=== PATIENT | female | born 1980 | race Caucasian/White ===

== ENCOUNTER 2018-04-05 23:19 | Inpatient (IN) | payer BC, MEDICAID ==
[2018-04-06] MEDS ORDERED: LABETALOL HCL 5 MG/ML 20 ML MDV IVP PRN (02:32)
[2018-04-06] MEDS ORDERED: D50W 25 GM/50 ML SYR IVP PRN (03:18)
[2018-04-06] MEDS: NS 1,000 ML IV SCH (03:32)
[2018-04-06] MEDS: ACETAMINOPHEN 325 MG TAB PO PRN ×2 (03:33→16:45)
[2018-04-06 05:04] LABS: PLATELET COUNT 221 10^3/uL (150-400)
--- NOTE | 2018-04-06 05:04 | PDGENHP ---
History and Physical - Chief Complaint headache, left lateral vision loss - History of Present Illness Source - Patient provides history and appears reliable. at bedside and supplements some details. Accompanying paper chart from [facility]. I spoke with the care provider prior to patient's transfer. They have requested transfer to [facility]. HPI-this very pleasant 38-year-old female with past medical history significant for DM 2, morbid obesity BMI of 41, HTN not currently on any medications as they were discontinued a few months ago by PCP, migraine headache, history of idiopathic cardiomyopathy who presents emergency department today her following the new onset of worsening diffuse headache and loss of left lateral vision. Patient reports that she [place] in the mall with [place] when she started to feel unwell. Patient notes that she was having increasing headache and subsequently developed loss of left lateral vision. Patient reports that he took a little time to recognize this specific nature of her vision loss as she sometimes gets blurry vision with low blood sugar which she thought was what was happening. She and her on stop for fluid in the courtyard however patient began to notice that she could not see her son who is sitting to her left. Her headache continued to worsen and so she presented to the emergency department for additional evaluation. Patient reports that 1 year ago she was diagnosed with hypertension and she had a similar symptom with her headache but no acute changes in vision at that time. Her blood pressures remained very well controlled and sulfa PCP took her off her enalapril. She follows with her PCP every 3 months and has not noticed any issues her blood pressures. She denies currently any numbness or tingling or focal deficits of her extremities otherwise. Patient does note that over the last several months she has been having quite variable blood sugars and has been making dietary adjustments. Additionally patient has had addition of injectable medication for control of her diabetes. Patient also notes that she has been having some upper respiratory symptoms like a common cold she has been taking Mucinex and NyQuil. Denies any use of Sudafed. Denies fever or chills In the emergency department at [facility]-patient underwent CT head, CTA of the head and neck which were negative. Stat MRI was obtained that did show a right ORTHOPEDIC CAST SPECIALIST infarct. Patient received full-dose aspirin has been greater than 3 hr and her blood pressures remained elevated. She was given a 2.5 mg dose of amlodipine for mildly elevated diastolic blood pressure above goal. Neurology at [facility] was consulted and initially patient was to be transferred over there however patient and her family requested transfer to [facility] for further care. History Information - Allergies/Home Medication List Allergies/Adverse Reactions: No Known Allergies Allergy (Unverified 04/06/18 02:24) I have personally reviewed and updated: family history, medical history, social history, surgical history - Past Medical History diabetes type 2, hypertension Additional medical history: Dm 2, HTN, migraine headaches, morbid obesity with BMI greater than 40, idiopathic cardiomyopathy - Surgical History Additional surgical history: BTL - Family History Additional family history: Father-diabetes HTN. Paternal grandfather, grandmother aunt and uncle all with DM 2. - Social History Smoking Status: Former smoker Alcohol Use: None Drug Use: None Additional social history: Patient is and lives with her and children. Cor status-full. Review of Systems Review of Systems: ROS: 10pt was reviewed & negative except for what was stated in HPI & below Physical Exam Physical Exam: Selected Entries 04/06/18 01:39 Heart Rate 111 H Respiratory 20 Rate O2 Sat (%) 93 Temperature (C) 37.6 C Blood Pressure 168/119 H Mean Arterial 135 H Pressure (MAP) Activity During At Rest Vital Signs O2 Delivery Room Air Mode Blood Pressure Right Source Upper Arm Temperature Oral Source Heart Rate Automatic Source Temp Pulse Resp BP Pulse Ox 36.5 C 106 H 16 184/128 H 94 04/06/18 03:35 04/06/18 03:35 04/06/18 03:35 04/06/18 03:35 04/06/18 03:35 Constitutional: no apparent distress, appears nourished, obese, uncomfortable, other (NAD. Pleasant adult female is lying quietly in bed. She is awake her is at bedside.) Eyes: PERRL (Decreased reactivity to light bilaterally but symmetric.), anicteric sclera, EOMI, No scleral injection Ears, Nose, Mouth, Throat: moist mucous membranes, other (Nasal discharge), No poor dentition Cardiovascular: regular rate and rhythym, no murmur, rub, or gallop, irregularly irregular, pulses symmetric bilaterally, tachycardia, No edema Peripheral Pulses: 2+: dorsalis-pedis (R), dorsalis-pedis (L) Respiratory: no respiratory distress, no rales or rhonchi, clear to auscultation , No respiratory distress Gastrointestinal: normoactive bowel sounds, soft, non-tender abdomen, no palpable masses Genitourinary: no bladder tenderness, No stevenson in urethra Skin: warm, normal color, no rashes or abrasions, No rash Musculoskeletal: full muscle strength, no muscle tenderness, normal joint ROM, no joint effusions, No generalized weakness (Patient is able to sit up independently. She is able to move all extremities.) Neurologic: AAOx3, sensation intact bilaterally, other (Left lateral visual field loss but no abnormalities and gaze. Patient with some intention tremor with cerebellar testing. Rapid alternating movements are intact. [id number] intact.), No weakness, No numbness, No facial droop Psychiatric: interacting appropriately, not anxious, not encephalopathic, thought process linear, No suicidal ideation, No poor insight, No poor judgement , No poor memory Lab Data & Imaging Review 04/06/18 04:48 04/06/18 04:48 Imaging Review: Imaging study reports from [facility] were reviewed. Disc accompanies the patient but I cannot access and on current only available computers. CT head-negative for any acute changes. CTA of the head and neck negative left off the octavia artery will visualized. The right ophthalmic artery not well visualized. In suddenly and incompletely visualized pericardial effusion measuring least 1.6 cm in maximal thickness noted. Extensive gas throughout the venous structures of the neck in deep facial soft tissues likely due to venous access. Maxillary sinus mucosal inflammation. MRI right posterior cerebral artery distribution ischemia/infarct. Chest a-pvv-yuqlrsu enlargement with central pulmonary vascular congestion and increased perihilar markings which may reflect mild perihilar edema and CHF. EKG additional interpertation: EKG did not accompany the patient. Written interpretation showing sinus tachycardia, LAD consider biatrial enlargement. Old inferior infarct. Rate in the 1 teens. QTC 448. On telemetry as she is sinus tachy 100s. EKG has been ordered. Assessment & Plan Assessment: This is a pleasant 38-year-old female with past medical history significant for HTN untreated, dm 2, morbid obesity who presents emergency department with complaints of several hours of worsening attic and left lateral visual field deficit. #Acute right ORTHOPEDIC CAST SPECIALIST infarct - likely related to patient's elevated blood pressures. They have improved since arrival. She did receive 2.5 mg of amlodipine prior to transfer. P.r.n. Hydralazine will be available for blood pressures greater than 220/120. Non tPA stroke protocol is in place. Patient with cerebellar testing abnormalities otherwise nonfocal exam. Her current NIH score is 0. Neurology consultation in the morning. Patient receive 325 mg aspirin prior to transfer. PT OT consultation. #Hypertensive emergency - patient reports that she presented similarly with headache a year ago and was treated for hypertension with enalapril. Her blood pressures remain were very well controlled under PCP discontinued her antihypertensive. Patient reports that she has also since that time had follow up with her PCP every 3 months and has not had any issues with her blood pressures up until today. #Pericardial effusion - incidentally noted on CT. Echocardiogram has been ordered. Chest x-ray consistent with findings of pulmonary edema and possible CHF however suspect this is likely due to hypertensive emergency. Patient notes she has a previous history of cardiac abnormalities. Outside records notes that she has a history of idiopathic cardiomyopathy. #Headache - likely related patient's blood pressures as well as infarct. Pain head and blood pressures have a proved following pain medications. #Visual field deficit-in setting of acute ORTHOPEDIC CAST SPECIALIST infarct. Continue to monitor for any improvement. Follow-up with Ophthalmology outpatient basis. CTA did not indicate any occlusion in the retinal artery on the left. #URI - patient with the nasal congestion and cough. She is afebrile. Supportive care. Hold off at additional cough suppressants that could potentially elevated blood pressures were discussed. Chronic medical issues #Dm 2 uncontrolled - holding metformin status post contrast load for 24 hr. Low -dose sliding scale with monitoring of Accu-Cheks. ADA diet. Continue patient' s glipizide. She has also been started on exenatide injection weekly and has started to note some occasional low blood sugars in the 80s to 90s. Patient reports that this is low for her as she has always been high and she can developed symptoms easily. #Morbid obesity BMI 41.7 - patient reports that she has had significant dietary changes and does not eat that much. Encouraged also lifestyle modifications as well including irregular activity. FEN - saline lock IV. Electrolyte monitoring replacement if needed. ADA diet ordered. Patient passed her swallow eval. PPX-holding anticoagulation pending Neurology evaluation recommendations. SCDs. Cor status-full Disposition-patient admitted to inpatient status on the neuro med floor for close monitoring of her neurologic status.
[2018-04-06 05:36] LABS: CREATINE KINASE 35 IU/L (0-156)
--- NOTE | 2018-04-06 07:54 | PDMN ---
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
[2018-04-06] MEDS: ONDANSETRON 4 MG/2 ML VIAL IVP PRN ×3 (07:55→16:37)
[2018-04-06] MEDS: INSULIN LISPRO 100 UNIT/ML SC SCH ×3 (08:46→18:40)
[2018-04-06] MEDS ORDERED: ASPIRIN 81 MG CHEWABLE TAB PO SCH (09:00)
--- NOTE | 2018-04-06 09:34 | NEUROPROG ---
Assessment: [id number] - Neurology Consult: - CC: Dr. Randle consulted neurology for stroke. Results placed in EMR for her review. - HPI: Pt with PMHx of DM2, obesity, HTN, migraines, idiopathic cardiomyopathy noted on 04/05/18 worsening headaches and problems with vision on her left side. She was not on any medications. She presented to [facility] in [place], [place]. A head CT and head/neck CTA were reported to be unremarkable but brain MRI was reported so show a R SCRATCH FINISHER stroke per [facility] admission H&P. No TPA was given. Pt requested transfer to [facility] which was done. Pt was also noted to have a pericardial effusion. I initially saw the patient on 04/06/18. Neurologic exam showed left sided vision. - PMHx: DM2, morbid obesity, HTN, migraines, idiopathic cardiomyopathy PSHx: BTL - SHx: former tobacco use FHx: HTN, DM2 - ROS: Pt denied acute fever, total vision loss, active severe chest pain, respiratory failure, total body severe rash, total bowel/bladder incontinence, psychosis, active seizures, or active bleeding - O: VS reviewed General: Alert Eyes: Fundoscopic exam not able to visualize optic disks CV: Heart RRR, no murmur, no carotid bruit Lungs: Clear to auscultation bilaterally, no rhonchi or rales Neuro: - Mental: . Oriented x person/place/date . concentration appears normal . speech fluency/comprehension normal . memory appears normal . fund of knowledge appear intact - Cranial Nerves: . II: PERRL, VF shows left sided vision loss in both eyes . III/IV/: EOMI, no nystagmus, normal smooth pursuits, no Ptosis . V: facial sensation intact to LT . VII: face symmetric to eye closure and smile . VIII: hearing intact to conversation . IX/X: uvula raises symmetrically . XI: SCM 5/5 B/L strength . XII: tongue protrudes midline w/nl strength - Motor: . Tone: normal tone in all 4 extremity . Strength: no pronator drift, strength 5/5 throughout (B/L delt, bic, tri, hand print inspector, hf/he, df/pf) - Reflexes: B/L bic/BR/patella 2/4 - Sensory: all 4 extremity intact to light touch - Coord: mrqbyi-th-focg wnl, ОЛЬГА wnl, mkoh-qe-efdl wnl - Gait: defer - NIH SS 2 - Labs: 04/06/18- LDL 54L, H1AC pending - Rads: 04/05/18- Head CT: reported not to show any acute bleed 04/05/18- Head/Neck CTA: reported not to show any significant findings 04/05/18- Brain MRI wo: reported to show right SCRATCH FINISHER stroke - Assessment: 1. Right SCRATCH FINISHER Stroke on 04/05/18 causing left sided vision changes: CTA head/neck on 04/05/18 showed no cause. Brain MRI on 04/05/18 showed right SCRATCH FINISHER distribution stroke. LDL 54L, pt not on aspirin prior to stroke. - 2. Pleural Effusion: defer to hospitalist - 3. HTN 4. DM2 5. Morbid Obesity 6. Migraines - Plan: - 24 hour telemetry looking for afib - TTE - Recommend cardiology consult for SISI and placement of prolonged nurse monitoring if TTE/telemetry does not find any cardioembolic cause of stroke - Continue aspirin 325 mg qd (change to aspirin 81 mg qd on hospital discharge) for stroke prevention - Blood pressure < 220/120 x 48 hours then < 140/90 - LDL < 70 (54) - H1AC < 7.0 - PT/OT/Speech to determine rehab needs - F/U in neurology clinic 1-6 weeks after hospital discharge Objective: Vital Signs Temp Pulse Resp BP Pulse Ox 36.5 C 112 H 33 H 168/120 H 94 04/06/18 07:49 04/06/18 07:49 04/06/18 07:49 04/06/18 08:44 04/06/18 07:49 Laboratory Results 04/06/18 04:48 04/06/18 04:48 04/05/18 04/06/18 04/07/18 05:59 05:59 05:59 Intake Total 425 Balance 425 Allergies/Adverse Reactions: No Known Allergies Allergy (Unverified 04/06/18 02:24)
--- NOTE | 2018-04-06 11:04 | ECHO ---
[email or web address] [address] [address] Main: [phone] Fax: Transthoracic Echocardiogram Name: FARZANEH MCGUIRE MR#: [id number] Study Date: 04/06/2018 Study Time: 10:07 AM Date of : 1980 Age: 38 year(s) Height: 157.5 cm (62 in.) Weight: 103.42 kg (228 lb.) BSA: 2.02 m2 Gender: Female Examination: Echo Indication: Ischemic stroke Image Quality: Adequate Contrast: Requested by: Odalis Randle BP: 165 mmHg/118 mmHg Heart Rate: Rhythm: Indication: Ischemic stroke Procedure Staff Olive Grader: Herminia Lemons RDCS Reading Physician: Umberto Devine MD Requesting Provider: Conclusions: Severely reduced systolic LV function. The ejection fraction is visually estimated to be 10 %. An agitated saline study was performed and was negative for intracardiac shunting. Mitral regurgitation may be mild to moderate. Moderate tricuspid regurgitation is present. Right ventricular systolic pressure measures 49mmHg. Small pericardial effusion. Measurements: Chambers Valvular Assessment AV/MV Valvular Assessment TV/PV Normal Normal Normal Name Value Range Name Value Range Name Value Range Ao Jeanette (2D): 3.1 cm (1.4 cm-2.6 AV Vmax: 1.15 m/s (1 m/s-1.7 TR Vmax: 3.33 mm/s ( - ) cm) m/s) TR PGmax: 44 mmHg ( - ) IVSd (2D): 1.2 cm (0.6 cm-1.1 AV maxP mmHg ( - ) syst. PAP: 49 mmHg ( - ) cm) AV meanP mmHg ( - ) PV Vmax: 0.77 m/s (0.6 m/s-0.9 LVDd (2D): 5.2 cm (3.9 cm-5.3 CHRISTA (VTI): 1.8 cm ( - ) m/s) cm) MV E Vmax: 1.07 m/s ( - ) PV PGmax: 2 mmHg ( - ) LVDs (2D): 4.6 cm (2.1 cm-4 MV PHT: 0.037 s ( - ) cm) MVA (PHT): 5.9 s ( - ) LVPWd (2D): 1.2 cm ( - ) LVOTd 2.0 cm 2.0 cm mm Visual EF: 10 % RVDd(2D): 3.8 cm (1.9 cm-3.8 cmmm) Continued Measurements: Chambers Valvular Assessment AV/MV Valvular Assessment TV/PV Name Value Name Value Name Value Patient: FARZANEH MCGUIRE Study Date: 04/06/2018 Page 1 of 2 10:07 AM LADs: 3.9 cm MV DecTime: 116 m/s CVP (est.): 5 mmHg LADs Lon.2 cm LA Area: 23.7 cm2 LA Volume: 71 ml LA Volume Index: 35.1 ml/m2 RA Area: 21.4 cm2 Additional Vessels Name Value Ao Ascendin.4 cm Inferior Vena Cava: 2.5 cm Findings: Left Ventricle: Normal size left ventricle. Mild concentric LV hypertrophy. Severely reduced systolic LV function. The ejection fraction is visually estimated to be 10 %. Global hypokinesis. Right Ventricle: Normal size right ventricle. Normal RV function. Left Atrium: The left atrium is mildly dilated. An agitated saline study was performed and was negative for intracardiac shunting. Right Atrium: The right atrium is mildly dilated. Mitral Valve: The mitral valve is normal in appearance and function. No mitral stenosis is present. Mitral regurgitation may be mild to moderate. Aortic Valve: The aortic valve is tri-leaflet. Mild aortic valve regurgitation is present. No aortic valve stenosis is present. Tricuspid Valve: The tricuspid valve is normal in appearance and function. Moderate tricuspid regurgitation is present. The pulmonary artery pressure is moderately increased. Right ventricular systolic pressure measures 49mmHg. Pulmonic Valve: The pulmonic valve is normal in appearance and function. Mild pulmonic valve regurgitation is noted. Aorta: The aorta is normal. Normal size aortic root measuring 3.1 cm. Normal size ascending aorta measuring 3.4 cm. IVC: The IVC is mildly dilated. Pericardium: Small pericardial effusion. No pleural effusion. Pericardial effusion measures around 1 cm. (No Signature Object) Patient: FARZANEH MCGUIRE Study Date: 04/06/2018 Page 2 of 2 10:07 AM [id number]
[2018-04-06] MEDS: hydrALAZINE 20 MG/ML VIAL IVP PRN (11:06)
[2018-04-06] MEDS ORDERED: PERFLUTREN LIPID MICROSPHERES 1.1 MG/ML VIAL IV ONE (11:15)
[2018-04-06] MEDS ORDERED: PNEUMOCOCCAL 0.5ML VACCINE VIAL (PNEUMOVAX 23) IM ONE (11:49)
--- NOTE | 2018-04-06 12:36 | ASMTCMCOM ---
CM Note CM Note Notes: Chart review conducted and spoke with pt's RN. Pt admitted for CVA, HTN and pericardial effusion. Pt lives with independently. Pt still having high BPs, nausea, vomitting and low EF. Therapies are following, PT anticipating independent discharge. Disposition and D/C date still TBD due to significant debilitating symptoms at this time. CM to follow. D/c Plan: TBD Date Signed: 04/06/2018 12:35 PM Electronically Signed By:Jessy Waldron
--- NOTE | 2018-04-06 13:34 | ECHO ---
[email or web address] [place] [id number] Main: [phone] Fax: Transthoracic Echocardiogram Name: FARZANEH MCGUIRE MR#: [id number] Study Date: 04/06/2018 Study Time: 11:21 AM Date of : 1980 Age: 38 year(s) Height: 157.5 cm (62 in.) Weight: 103.42 kg (228 lb.) BSA: 2.02 m2 Gender: Female Examination: Limited Echo with Definity Indication: Limited follow up with Definity Image Quality: Adequate Contrast: 0.330 mg I.V. dose of Definity was administered to improve endocardial border definition. Requested by: Notpresent Patient BP: 157 mmHg/122 mmHg Heart Rate: Rhythm: Indication: Limited follow up with Definity Procedure Staff Nail Kegger: Herminia Lemons [facility] Reading Physician: Umberto Devine MD Requesting Provider: Conclusions: No evidence of thrombus in the left ventricle. Measurements: Chambers Valvular Assessment AV/MV Valvular Assessment TV/PV Normal Normal Normal Name Value Range Name Value Range Name Value Range Continued Measurements: Findings: Left Ventricle: No evidence of thrombus in the left ventricle. Exam Comments: (No Signature Object) Patient: FARZANEH MCGUIRE Study Date: 04/06/2018 Page 1 of 1 11:21 AM [id number]
[2018-04-06] MEDS ORDERED: hydrALAZINE 25 MG TAB PO ONE (14:45)
[2018-04-06] MEDS ORDERED: ALBUTEROL 60 PUFFS/8 GM MDI IH PRN (15:35)
--- NOTE | 2018-04-06 15:39 | HOSPPROG ---
Hospitalist Progress Note Assessment/Plan: 38 year old female with pmh of NIDDM, morbid obesity, HTN admitted with an acute DIRECTOR OF PATIENT CARE stroke and found to have LVEF of 10%. Acute CVA- MRI from OSH showed acute CVA of right DIRECTOR OF PATIENT CARE. patient with continued NV and left sided visual field deficits. Neurology consulted who saw patient and recommends permissive HTN for 48 hours, full dose asa, lipid control, and SISI. Etiology concerning for embolic CVA given TTE results. 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 Discussed case with cardiology. Etiology uncertain although even though patient with DM and obesity, likely not ischemic CM. may be viral, vs hypertensive. Either way would likely benefit from angiography prior to dc. -SISI in am -cath prior to dc. -check flu for possible etiology -BP control -further discussion about coumadin/anticoagulation pending NIDDM- on metformin at home. A1c 7.8. Hold here and cover with SSI PPX- SCDS, Asa, lovenox Fluids- NS Lytes- WNl Nutrition- NPO at LA Cor- Full Dispo- inpatient for acute CVA, CHF Subjective: still with left sided visual field problems. ongoing nausea. Objective: Vital Signs Temp Pulse Resp BP Pulse Ox 36.9 C 102 H 28 H 172/125 H 94 04/06/18 14:08 04/06/18 15:00 04/06/18 15:00 04/06/18 15:00 04/06/18 15:00 Laboratory Results 04/06/18 04:48 04/06/18 04:48 04/05/18 04/06/18 04/07/18 05:59 05:59 05:59 Intake Total 425 Balance 425 - Physical Exam Constitutional: no apparent distress, appears nourished, not in pain Eyes: PERRL, anicteric sclera, EOMI Ears, Nose, Mouth, Throat: moist mucous membranes, hearing normal, ears appear normal, no oral mucosal ulcers Cardiovascular: regular rate and rhythym, no murmur, rub, or gallop Respiratory: no respiratory distress, no rales or rhonchi, clear to auscultation Gastrointestinal: normoactive bowel sounds, soft, non-tender abdomen, no palpable masses Genitourinary: no bladder fullness, no bladder tenderness, no renal bruits Skin: no rashes or abrasions, no fluctuance, no induration Musculoskeletal: full muscle strength, no muscle tenderness, normal joint ROM Neurologic: AAOx3, sensation intact bilaterally, other (left sided visual field deficits noted. ) Psychiatric: interacting appropriately, not anxious, not encephalopathic, thought process linear, suicidal ideation Lymph, Heme, Immunologic: no cervical LAD, no supraclavicular LAD ICD10 Worksheet Patient Problems: Problems Problem Status Onset CVA (cerebral vascular accident) Acute - ICD10 Problem Qualifiers (1) CVA (cerebral vascular accident)
--- NOTE | 2018-04-06 15:52 | CPEKG ---
Test Reason : OPEN Blood Pressure : / mmHG Vent. Rate : 105 BPM Atrial Rate : 105 BPM P-R Int : 163 ms QRS Dur : 084 ms QT Int : 382 ms P-R-T Axes : 069 -23 020 degrees QTc Int : 506 ms Sinus tachycardia Left atrial enlargement Borderline left axis deviation Borderline T wave abnormalities Borderline prolonged QT interval Confirmed by Floyd Delcid ([id number]) on 04/06/2018 3:51:44 PM Referred By: Confirmed By:Floyd Delcid
--- NOTE | 2018-04-06 16:03 | PDCARCONS ---
Cardiology Consult Reason for Consult: New, severe reduction in LVEF noted by echocardiography Chief Complaint: Head ache with new CVA and HTN Requesting Physician: Hospitalist team History of Present Illness: Patient is a 38 y/o female with history of DM, morbid obesity (BMI ?40), and HTN (not on therapy on therapy) with reports of "non ischaemic" cardiomyopathy ( by reason of mild reduction in left ventricular systolic function by echocardiography in [place] several months ago (47%)), who presents to [facility] after transfer from [facility] given a lack of neurology coverage. Patient was initially placed on the third floor, and seen by neurology, but after completion and formal read on echocardiography, cardiology with recommendations for patient to be placed in the ICU for more close monitoring. Patient's complaint that led to initial hospitalization were severe head ache, and visual field changes. From chart review, one year prior, similar issues with blood pressure were noted and the patient was treated with antihypertensive therapy ( enalapril). Blood pressures were reportedly well controlled with numerous follow up visits with PCP. CT of head was performed at [place], and no pathology was noted. MRI was then performed, and a right CRESTER infarct was noted. Amlodipine was started for assistance with blood pressure control, and the patient was given ASA therapy. At present, the patient's chief complaint has been nausea and ongoing head ache. Morphine was given, and it is uncertain if some of the symptoms currently noted are due to this therapy versus ongoing HTN. Neurology is wanting to have some degree of blood pressure control, but given the CVA, request for less than aggressive HTN control is desired (140-160 mm Hg systolic) . Patient did start a recent weight loss medication, and this has been successful with change in appetite to the point that she has lost over 30 pounds. Patient did not have follow up with cardiology after the noted mild reduction in systolic function given improvement in blood pressures that were noted. Echocardiogram here today with left ventricular systolic function of 10%. No fevers or chills. PND is noted with mild orthopnea. No lower extremity swelling has been noted. Visual field changes have also been noted (for the past 24 hours). No chest pains or pressure. Remainder of 12 point review of systems is unremarkable History Information - Allergies/Home Medication List Allergies/Adverse Reactions: No Known Allergies Allergy (Verified 04/06/18 09:50) Home Medications: Albuterol Hfa Anes Only [Proair Hfa Icu (*)] 2 puffs IH QID PRN 04/06/18 [Last Taken Unknown] Exenatide Microspheres [Bydureon Pen] 2 mg SQ WE@21 04/06/18 [Last Taken ] Ibuprofen [Motrin (*)] 200 - 600 mg PO DAILY PRN 04/06/18 [Last Taken Unknown] Norethindrone [Norlyda] 0.35 mg PO HS 04/06/18 [Last Taken 04/04/18] glipiZIDE [Glipizide] 5 mg PO BID 04/06/18 [Last Taken 04/05/18] metFORMIN HCL [Metformin HCl] 1,000 mg PO BID 04/06/18 [Last Taken 04/05/18] I have personally reviewed and updated: family history, medical history, social history, surgical history Past Medical History: - Past Medical History asthma, CVA, diabetes type 2, hypertension - Surgical History Reports: no pertinent surgical hx - Family History Positive for: non-pertinent - Social History Smoking Status: Former smoker Alcohol Use: None Drug Use: None Cardiac History - Cardiac History Cardiac Risk Factors: hypertension (>140/90), diabetes mellitus Timing/Duration: Days Severity: moderate Severity Scale: 7 Location: other (visual field disturbances) Activities at Onset: activity Associated Symptoms: headaches, malaise, nausea/vomiting, weakness Physical Exam Physical Exam: Temp Pulse Resp BP Pulse Ox 36.9 C 102 H 28 H 172/125 H 94 04/06/18 14:08 04/06/18 15:00 04/06/18 15:00 04/06/18 15:00 04/06/18 15:00 O2 (L/minute) 2 Constitutional: no apparent distress, appears nourished, obese, uncomfortable Eyes: PERRL, EOMI Ears, Nose, Mouth, Throat: moist mucous membranes, hearing normal, ears appear normal Cardiovascular: regular rate and rhythym, pulses symmetric bilaterally, tachycardia, No systolic murmur, No JVD, No edema Peripheral Pulses: 2+: dorsalis-pedis (R), dorsalis-pedis (L) Respiratory: no respiratory distress, no rales or rhonchi, clear to auscultation Gastrointestinal: normoactive bowel sounds Skin: warm, normal color Musculoskeletal: full muscle strength, no muscle tenderness, normal joint ROM Neurologic: AAOx3, weakness Psychiatric: interacting appropriately Lab and Imaging 04/06/18 04:48 04/06/18 04:48 WBC 8.84 10^3/uL (3.80-9.50) 04/06/18 04:48 RBC 4.60 10^6/uL (4.18-5.33) 04/06/18 04:48 Hgb 11.9 g/dL (12.6-16.3) L 04/06/18 04:48 Hct 36.4 % (38.0-47.0) L 04/06/18 04:48 MCV 79.1 fL (81.5-99.8) L 04/06/18 04:48 MCH 25.9 pg (27.9-34.1) L 04/06/18 04:48 MCHC 32.7 g/dL (32.4-36.7) 04/06/18 04:48 RDW 14.0 % (11.5-15.2) 04/06/18 04:48 Plt Count 221 10^3/uL (150-400) 04/06/18 04:48 MPV 10.9 fL (8.7-11.7) 04/06/18 04:48 Neut % (Auto) 79.5 % (39.3-74.2) H 04/06/18 04:48 Lymph % (Auto) 14.7 % (15.0-45.0) L 04/06/18 04:48 [place] % (Auto) 5.0 % (4.5-13.0) 04/06/18 04:48 Eos % (Auto) 0.3 % (0.6-7.6) L 04/06/18 04:48 Baso % (Auto) 0.3 % (0.3-1.7) 04/06/18 04:48 Nucleat RBC Rel Count 0.0 % (0.0-0.2) 04/06/18 04:48 Absolute Neuts (auto) 7.02 10^3/uL (1.70-6.50) H 04/06/18 04:48 Absolute Lymphs (auto) 1.30 10^3/uL (1.00-3.00) 04/06/18 04:48 Absolute Monos (auto) 0.44 10^3/uL (0.30-0.80) 04/06/18 04:48 Absolute Eos (auto) 0.03 10^3/uL (0.03-0.40) 04/06/18 04:48 Absolute Basos (auto) 0.03 10^3/uL (0.02-0.10) 04/06/18 04:48 Absolute Nucleated RBC 0.00 10^3/uL (0-0.01) 04/06/18 04:48 Immature Gran % 0.2 % (0.0-1.1) 04/06/18 04:48 Immature Gran # 0.02 10^3/uL (0.00-0.10) 04/06/18 04:48 Sodium 135 mEq/L (135-145) 04/06/18 04:48 Potassium 3.5 mEq/L (3.5-5.2) 04/06/18 04:48 Chloride 105 mEq/L (97-110) 04/06/18 04:48 Carbon Dioxide 22 mEq/l (22-31) 04/06/18 04:48 Anion Gap 8 mEq/L (6-14) 04/06/18 04:48 BUN 11 mg/dL (7-23) 04/06/18 04:48 Creatinine 0.7 mg/dL (0.6-1.0) 04/06/18 04:48 Estimated GFR > 60 04/06/18 04:48 Glucose 222 mg/dL (70-100) H 04/06/18 04:48 POC Glucose 245 mg/dL (70-100) H 04/06/18 11:44 Hemoglobin A1c 7.8 % (4.0-6.0) H 04/06/18 04:48 Estim Average Glucose 177 mg/dL (68-126) H 04/06/18 04:48 Calcium 8.3 mg/dL (8.5-10.4) L 04/06/18 04:48 Creatine Kinase 35 IU/L (0-156) 04/06/18 04:48 Triglycerides 118 mg/dL (35-135) 04/06/18 04:48 Cholesterol 112 mg/dL (140-200) L 04/06/18 04:48 Cholesterol Risk Factr 0.5 (0.2-1.0) 04/06/18 04:48 LDL Cholesterol, Calc 54 mg/dL (70-100) L 04/06/18 04:48 LDL Risk Factor 0.6 (0.2-1.0) 04/06/18 04:48 VLDL Cholesterol 24 mg/dL (8-25) 04/06/18 04:48 Non-HDL Cholesterol 78 mg/dL (90-129) L 04/06/18 04:48 HDL Cholesterol 34 mg/dL (40-80) L 04/06/18 04:48 LDL/HDL Ratio 1.60 RATIO (1.00-3.22) 04/06/18 04:48 Cholesterol/HDL Ratio 3.29 RATIO (1.00-4.44) 04/06/18 04:48 Nasal Influenza A PCR NEGATIVE FOR FLU A (NEGATIVE) 04/06/18 14:58 Nasal Influenza B PCR NEGATIVE FOR FLU B (NEGATIVE) 04/06/18 14:58 Visualized and Interpreted Chest x-ray results: No Chest X-ray Interpretation: other (not performed) EKG Interpretation: Positive for: normal sinsus rhythm (sinus tachycardia) Telemetry: sinus tachycardia Echocardiogram: severe reduction in LVEF noted (10%). Moderate TR with elevated RVSP ~50 mm Hg A/P Assessment: Patient is a 38 y/o female with new CVA, history of HTN, morbid obesity, and DM , but no HLP or CAD, who presents to [facility] via transfer from [facility] with new CVA. Echocardiography with severe reduction in LVEF noted (10%). Ongoing head ache with nausea. at bedside. Uncertain etiology for the severe reduction in LVEF. At present, our concerns are related to the HTN that is noted. We do not want to aggressively drop blood pressure given the CVA history, but we do need to drop pressures to the 140-160 mm Hg range. Alpha blockers were started given the pressure noted. Plan: (1) SISI in the morning to assess for thrombus burden (2) Consideration for LINQ implant to determine if there are arrhythmias (3) Continue Hydralazine (25 mg three times per day) (4) Coreg to start tonight (6.25 mg twice per day) (5) Patient should have angiography prior to discharge from hospital given the severe reduction in LVEF noted (6) Likely addition of ACEi therapy (lisinopril) over the next 24 hours (7) We will continue to follow this patient Concerns about hypertensive cardiomyopathy as etiology for patient's CVA and CMP.
[2018-04-06] MEDS: CARVEDILOL 6.25 MG TAB PO SCH ×2 (16:40→16:49)
[2018-04-07] MEDS: NS 1,000 ML IV SCH (01:15)
[2018-04-07 04:24] LABS: PLATELET COUNT 263 10^3/uL (150-400)
[2018-04-07] MEDS: INSULIN LISPRO 100 UNIT/ML SC SCH ×5 (08:58→22:17)
[2018-04-07] MEDS ORDERED: NS 1,000 ML IV ONE (09:53)
[2018-04-07] MEDS ORDERED: PROPOFOL/EMULSION 500 MG/50 ML BOTTLE IV ONE (10:00)
--- NOTE | 2018-04-07 10:01 | PDCARPN ---
Cardiology Progress Note Chief Complaint: No active cardiovascular complaints this morning, but mild nausea continues to be noted Assessment/Plan: Assessment: 04-07-18 Patient without events overnight. Family at bedside. Discussions with neurology and pulm/crit care about how to assess patient's risks and etiology for the events that have been noted. No voiced cardiovascular complaints of chest pains or pressure. Blood pressures continue to be elevated (~150/~110 mm Hg). 04-06-18 Patient is a 38 y/o female with history of DM, morbid obesity (BMI ?40), and HTN (not on therapy on therapy) with reports of "non ischaemic" cardiomyopathy ( by reason of mild reduction in left ventricular systolic function by echocardiography in [place] several months ago (47%)), who presents to [facility] after transfer from [facility] given a lack of neurology coverage. Patient was initially placed on the third floor, and seen by neurology, but after completion and formal read on echocardiography, cardiology with recommendations for patient to be placed in the ICU for more close monitoring. Patient's complaint that led to initial hospitalization were severe head ache, and visual field changes. From chart review, one year prior, similar issues with blood pressure were noted and the patient was treated with antihypertensive therapy ( enalapril). Blood pressures were reportedly well controlled with numerous follow up visits with PCP. CT of head was performed at [place], and no pathology was noted. 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 Amlodipine was started for assistance with blood pressure control, and the patient was given ASA therapy. At present, the patient's chief complaint has been nausea and ongoing head ache. Morphine was given, and it is uncertain if some of the symptoms currently noted are due to this therapy versus ongoing HTN. Neurology is wanting to have some degree of blood pressure control, but given the CVA, request for less than aggressive HTN control is desired (140-160 mm Hg systolic) . Patient did start a recent weight loss medication, and this has been successful with change in appetite to the point that she has lost over 30 pounds. Patient did not have follow up with cardiology after the noted mild reduction in systolic function given improvement in blood pressures that were noted. Echocardiogram here today with left ventricular systolic function of 10%. No fevers or chills. PND is noted with mild orthopnea. No lower extremity swelling has been noted. Visual field changes have also been noted (for the past 24 hours). No chest pains or pressure. Remainder of 12 point review of systems is unremarkable Plan: (1) Cardiology will perform SISI this morning (2) If thrombus is noted, would acutely treat with heparin/lovenox and start coumadin (3) If no thrombus is noted, would still (given the severe reduction in LVEF) treat with coumadin therapy (4) Left heart catheterization is needed prior to discharge from the hospital given (a) premature family history of CAD with PCI to mother less than age 40, and (b) new, severe LVEF dysfunction (5) Further recommendations after SISI today (6) Would plan on angiography tomorrow (before chronic anticoagulation is to begin) (7) Cardiology would like to see blood pressures of 120/80 given the possible cause of the CMP as hypertension, but also given the patient's DM history. Subjective: No active cardiovascular complaints. Head aches continue Reviewed/Discussed With: family, hospitalist Objective: Vital Signs (8 Hrs) Temp Pulse Resp BP Pulse Ox 04/07/18 08:00 37.1 C 97 16 164/113 H 93 04/07/18 07:00 101 H 16 154/106 H 93 04/07/18 06:00 98 20 160/111 H 93 04/07/18 05:51 102 H 20 93 04/07/18 05:00 101 H 26 H 162/118 H 94 04/07/18 04:00 36.4 C 104 H 24 H 152/116 H 94 04/07/18 03:00 101 H 25 H 153/104 H 94 04/07/18 02:00 102 H 18 158/116 H 96 Intake/Output (24 Hrs) 04/06/18 04/07/18 04/08/18 05:59 05:59 05:59 Intake Total 425 2113 Balance 425 2113 Intake: Oral (ml) 250 1300 IV Intake (ml) 320 IV Infused (ml) 175 493 Ns 1,000 ml @ 75 mls/hr 175 493 IV CONT ROBERTO Rx#: [id number] Other: Weight 103.419 kg 101.1 kg 101.7 kg Intake Quantity Yes Sufficient Number of Voids Toilet 1 2 1 Number of Emesis 4 Occurrences Result Diagrams: 04/07/18 04:15 04/06/18 04:48 EKG: sinus tachycardia Telemetry: sinus tachycardia Echocardiogram: LVEF of about 10% - Physical Exam Constitutional: no apparent distress, obese Eyes: PERRL, EOMI Ears, Nose, Mouth, Throat: moist mucous membranes Cardiovascular: no rubs, other (sinus tachycardia), No systolic murmur, No jugular vein distention Peripheral Pulses: 2+: dorsalis-pedis (R), dorsalis-pedis (L) Respiratory: clear to auscultate bilat, no crackles, no wheezes Gastrointestinal: normoactive bowel sounds Skin: no edema Musculoskeletal: no muscular tenderness Neurologic: AAOx3 Psychiatric: cooperative, interactive, following commands ICD10 Worksheet Patient Problems: Problems Problem Status Onset CVA (cerebral vascular accident) Acute
--- NOTE | 2018-04-07 10:03 | PDANEPAE ---
ANE History of Present Illness 38 for leonor ANE Past Medical History - Cardiovascular History Hx Hypertension: Yes Hx Arrhythmias: No Hx Chest Pain: No Hx Coronary Artery / Peripheral Vascular Disease: No Hx CHF / Valvular Disease: No Hx Palpitations: No - Pulmonary History Hx COPD: No Hx Asthma/Reactive Airway Disease: No Hx Recent Upper Respiratory Infection: No Hx Oxygen in Use at Home: No Hx Sleep Apnea: No - Endocrine History Hx Diabetes: Yes ANE Review of Systems Review of Systems: - Exercise capacity METS (RN): 3 METS ANE Patient History - Allergies Allergies/Adverse Reactions: No Known Allergies Allergy (Verified 04/06/18 09:50) - Home Medications Home Medications: Albuterol Hfa Anes Only [Proair Hfa Icu (*)] 2 puffs IH QID PRN 04/06/18 [Last Taken Unknown] Exenatide Microspheres [Bydureon Pen] 2 mg SQ WE@21 04/06/18 [Last Taken ] Ibuprofen [Motrin (*)] 200 - 600 mg PO DAILY PRN 04/06/18 [Last Taken Unknown] Norethindrone [Norlyda] 0.35 mg PO HS 04/06/18 [Last Taken 04/04/18] glipiZIDE [Glipizide] 5 mg PO BID 04/06/18 [Last Taken 04/05/18] metFORMIN HCL [Metformin HCl] 1,000 mg PO BID 04/06/18 [Last Taken 04/05/18] - Smoking Hx Smoking Status: Former smoker - Alcohol Use Alcohol Use: None ANE Labs/Vital Signs - Labs Result Diagrams: 04/07/18 04:15 04/06/18 04:48 - Vital Signs Blood Pressure: 164/113 Heart Rate: 97 Respiratory Rate: 16 O2 Sat (%): 93 Height: 5 ft 2 in Weight: 101.7 kg ANE Physical Exam - Airway Mallampati Score: Class 2 Mouth exam: normal dental/mouth exam - Pulmonary Pulmonary: no respiratory distress - Cardiovascular Cardiovascular: regular rate and rhythym - ASA Status ASA Status: III ANE Anesthesia Plan Anesthesia Plan: MAC
[2018-04-07] MEDS ORDERED: CARVEDILOL 6.25 MG TAB PO ONE (10:31)
[2018-04-07] MEDS ORDERED: NALOXONE HCL 0.4 MG/ML INJ IVP PRN (10:58)
--- NOTE | 2018-04-07 10:59 | POSTANESTH ---
Post Anesthetic Evaluation Cardiovascular Status: Normal, Stable Respiratory Status: Similar to Pre-op Cond. Level of Consciousness/Mental Status: Can Participate in Eval Pain Control: Adequate, Prn Tx Ordered Nausea/Vomiting Control: Adequate, Prn Tx Ordered Complications Possibly Related to Anesthesia: None Noted
[2018-04-07] MEDS ORDERED: FAMOTIDINE 20 MG TAB PO ONE (11:16)
[2018-04-07] MEDS ORDERED: TEMAZEPAM 15 MG CAP PO PRN (11:16)
[2018-04-07] MEDS ORDERED: ACETAMINOPHEN 325 MG TAB PO PRN (11:16)
[2018-04-07] MEDS ORDERED: diphenhydrAMINE 25 MG CAP PO ONE (11:16)
[2018-04-07] MEDS ORDERED: NITROGLYCERIN 0.4 MG BTL SL PRN (11:16)
[2018-04-07] MEDS ORDERED: DIAZEPAM 5 MG TAB PO ONE (11:16)
[2018-04-07] MEDS: ONDANSETRON 4 MG/2 ML VIAL IVP PRN ×2 (11:22→19:39)
[2018-04-07] MEDS: ASPIRIN 325 MG TAB PO SCH (11:22)
[2018-04-07] MEDS: CARVEDILOL 6.25 MG TAB PO SCH ×2 (11:22→18:35)
--- NOTE | 2018-04-07 11:23 | PDCARTEE ---
CAR SISI CAR SISI: Procedure performed: (1) Sedation for allowance of the procedure (2) SISI Indication: Assessment of systolic function, wall motion, and rule out thrombus Procedure details: After consents for sedation and SISI were signed, and details of the procedure were discussed with patient and family. Sedation was induced without difficulty and SISI probe was placed without difficulty. Standard views were obtained. Preliminary echo report (1) severe reduction in LVEF (10%) (2) grossly normal mitral valve (3) trileaflet aortic valve with physiologic insufficiency (4) moderate tricuspid regurgitation (5) grossly normal atrial dimensions (6) no thrombus to the left atrial appendage (7) no obvious mural thrombus noted No complications were noted
[2018-04-07] MEDS ORDERED: NS 1,000 ML IV SCH (11:30)
[2018-04-07] MEDS ORDERED: PROPOFOL/EMULSION 50 ML IV ONE (11:30)
[2018-04-07] MEDS: HYDROCODONE/APAP 5/325 TAB PO PRN ×2 (11:53→19:39)
--- NOTE | 2018-04-07 12:02 | NEUROPROG ---
Assessment: [id number] - Neurology Consult: - CC: F/U for stroke - Narrative Summary: Pt with PMHx of DM2, obesity, HTN, migraines, idiopathic cardiomyopathy noted on 04/05/18 worsening headaches and problems with vision on her left side. She was not on any medications. She presented to [facility] ([place], [place]) in [place], [place]. 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 No TPA was given. Pt requested transfer to [facility] which was done. Pt was also noted to have a pericardial effusion. I initially saw the patient on 04/06/18. Neurologic exam showed left sided vision. - HPI: F/U 04/07/18. TTE showed EF 10%. Cardiology consulted and recommended SISI and cardiac cath to further evaluate as unclear cause of low EF. At this times it seems reduced EF is likely cause of stroke so will consider warfarin at hospital discharge for stroke prevention (per UpToDate guidelines). Will get repeat brain MRI to assess stroke cause to estimate bleeding risk if warfarin is needed. 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 Right SALES CONSULTANT INSURANCE Stroke on 04/05/18 causing left sided vision changes: CTA head/neck on 04/05/18 showed no cause. Brain MRI on 04/05/18 showed right SALES CONSULTANT INSURANCE distribution stroke. LDL 54L, pt not on aspirin prior to stroke. EF reduced to 10% on TTE is concerning for cause of stroke. Will consider discharging on warfarin vs aspirin for stroke prevention based on cardiology evaluation. - 2. Reduced EF on TTE on 04/06/18: cardiology consulting - 3. HTN 4. DM2 5. Morbid Obesity 6. Migraines - Plan: - Cardiology consulting with SISI and cardiac cath planned, also considering LINQ placement - Continue aspirin 325 mg qd for stroke prevention at this time, however changing to warfarin at hospital discharge will be considered if reduced EF of 10% is determined to be likely cause of stroke (per UpToDate guidelines) - Brain MRI today to determine the size of stroke given possible need to discharge on anticoagulation and need to assess bleed risk - Blood pressure < 160/90 is reasonable as cardiology feels cardiac benefit from lower pressure - LDL < 70 (54) - H1AC < 7.0 (7.8) - PT/OT/Speech to determine rehab needs - F/U in neurology clinic 1-6 weeks after hospital discharge - 35 min spent with patient and family discussing stroke and treatment plan Objective: Vital Signs Temp Pulse Resp BP Pulse Ox 37.1 C 99 20 143/100 H 97 04/07/18 08:00 04/07/18 11:22 04/07/18 11:00 04/07/18 11:22 04/07/18 11:00 Laboratory Results 04/07/18 04:15 04/06/18 04:48 04/06/18 04/07/18 04/08/18 05:59 05:59 05:59 Intake Total 425 2113 Balance 425 2113 Allergies/Adverse Reactions: No Known Allergies Allergy (Verified 04/06/18 09:50)
[2018-04-07 12:09] LABS: PLATELET COUNT 219 10^3/uL (150-400)
[2018-04-07] MEDS ORDERED: LORazepam 2 MG/ML INJ IVP PRN (12:10)
--- NOTE | 2018-04-07 12:10 | HOSPPROG ---
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 Acute CVA- MRI from OSH showed acute CVA of right PHARMACY DATA ANALYST. patient with continued NV and left sided visual field deficits. Neurology consulted who saw patient and recommends permissive HTN for 48 hours, full dose asa, lipid control, and SISI. Etiology concerning for embolic CVA given TTE results. -asa 325 -telemetry -SISI performed this AM, with no clots noted, depressed EF consistent with TTE -PRN hydralazine to maintain BP 140-160 -Increasing Coreg to 12.5 BID -LDL under 70 (53) -Neuro following, recommending initiation of warfarin prior to discharge - PT/OT, EQUITY ANALYST for discharge planning CHF- TTE today with LVEF of under 10%. Discussed case with cardiology. Etiology uncertain although even though patient with DM and obesity, likely not ischemic CM. may be viral, vs hypertensive. Either way would likely benefit from angiography prior to dc. -SISI performed this AM, with no clots noted, depressed EF consistent with TTE -LHC and RHC planned for tomorrow AM, NPO after midnight -check flu for possible etiology -BP control, increased Coreg as above -further discussion about coumadin/anticoagulation pending NIDDM- on metformin at home. A1c 7.8. Hold here and cover with SSI PPX- SCDS, Asa, lovenox Fluids- NS Lytes- WNl Nutrition- NPO at [facility]- Full Dispo- inpatient for acute CVA, CHF Subjective: Patient reports continued decreased peripheral vision in L eye Objective: Vital Signs Temp Pulse Resp BP Pulse Ox 37.1 C 99 20 143/100 H 97 04/07/18 08:00 04/07/18 11:22 04/07/18 11:00 04/07/18 11:22 04/07/18 11:00 04/06/18 04/07/18 04/08/18 05:59 05:59 05:59 Intake Total 425 2113 Balance 425 2113 - Physical Exam Constitutional: no apparent distress Eyes: PERRL Ears, Nose, Mouth, Throat: moist mucous membranes Cardiovascular: regular rate and rhythym Respiratory: no respiratory distress Gastrointestinal: soft, non-tender abdomen Skin: warm Musculoskeletal: full muscle strength Neurologic: AAOx3 Psychiatric: interacting appropriately ICD10 Worksheet Patient Problems: Problems Problem Status Onset CVA (cerebral vascular accident) Acute
[2018-04-07 12:39] LABS: INR 1.24 (0.83-1.16); PROTIME(PATIENT) 15.8 SEC (12.0-15.0)
--- NOTE | 2018-04-07 13:05 | PDINTPN ---
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 Clinically stable Cardiomyopathy: EF 10%, cause unknown, ? ischemic, hypertensive, idiopathic ( viral). SISI did not show any clot. HTN: Chronic. Acutely severe in setting of CVA. BP goal lower today at approx SBP 140 DM: BSs 200s BRII: Suspected as an outpatient, has not completed recommended evaluation. Could contribute to HTN, sub-optimal DM control, increased CV risk, cardiomyopathy. Plan: BP control with goal SBP 140, use hydralazine PRN and increase carvedilol Increase SSI. Hold OHA. PO narcotics PRN TAYLOR Heart cath tentatively 04/08/18 ASA for now, likely start Coumadin prior to discharge. Outpatient evaluation for BRII 04/07/18 13:06 Subjective: Feels a bit better, still has TAYLOR, but improved. Objective: Vital Signs Temp Pulse Resp BP Pulse Ox 37.1 C 99 20 143/100 H 97 04/07/18 08:00 04/07/18 11:22 04/07/18 11:00 04/07/18 11:22 04/07/18 11:00 Laboratory Results 04/07/18 12:00 04/07/18 12:00 04/06/18 04/07/18 04/08/18 05:59 05:59 05:59 Intake Total 425 2113 Balance 425 2113 PT 15.8 SEC (12.0-15.0) H 04/07/18 12:00 INR 1.24 (0.83-1.16) H 04/07/18 12:00 Physical Exam - Physical Exam General Appearance: alert, no apparent distress EENT: normal ENT inspection Neck: normal inspection Respiratory: lungs clear, normal breath sounds Cardiac/Chest: normal peripheral pulses, regular rate, rhythm Abdomen: normal bowel sounds, non-tender Skin: normal color, warm/dry Extremities: normal inspection Neuro/Psych: alert, normal mood/affect, oriented x 3 ICD10 Worksheet Patient Problems: Problems Problem Status Onset CVA (cerebral vascular accident) Acute
--- NOTE | 2018-04-07 13:14 | GCON ---
PULMONARY/CRITICAL CARE CONSULTATION DATE OF CONSULTATION: 04/06/2018 REFERRING PHYSICIAN: Odalis Randle MD REASON FOR REFERRAL: Evaluation and management of cardiomyopathy and CVA. HISTORY: The patient is a 38-year-old woman with a history of obesity, hypertension, and diabetes, w ho presented to the emergency department with symptoms of headache and loss of left lateral vision. She was transferred to [facility] for further evaluation. 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 She was given aspirin. She subsequently had an echocardiogram which showed an ejection fraction of 10%. The patient denies dyspnea but does complain of significant hea dache. She has had some upper respiratory symptoms for which she has been taking Mucinex and NyQuil. PAST MEDICAL HISTORY: 1. Type 2 diabetes. 2. Hypertension. 3. Migraine headaches. MEDICATIONS AT THE TIME OF ADMISSION: Include glipizide, ProAir, metformin, Bydureon, norethindrone, and ibuprofen. ALLERGIES: None. SOCIAL HISTORY: The patient is a former smoker and denies alcohol use. She lives with her a nd children. FAMILY HISTORY: Unremarkable. A 10-point review of systems adds nothing to the History of Present I llness. PHYSICAL EXAMINATION: GENERAL: The patient is awake, alert, and in no acute distress. VITAL SIGNS: Blood pressure is 179/125 with a heart rate of 102. She is afebrile. Oxygen saturations are 94% o n 2 L. HEENT: Normocephalic and atraumatic. No icterus. NECK: No JVD. Trachea is midline. CHES T: Clear to auscultation. CARDIAC: Regular rate and rhythm without murmur. ABDOMEN: Soft, nonten kellie. Bowel sounds are present. EXTREMITIES: No clubbing, cyanosis, or edema. NEURO: The patient is awake and alert. She is in no acute distress. She has no gross motor or sensory deficits. She h as decreased vision in the left lateral visual field. LABORATORY: Hemoglobin is 11.9 with a white blood count of 8.8. A chemistry group is remarkable for a blood sugar of 222, and blood sugars have been in the 200s consistently. An echocardiogram shows severely reduced LV function with an ejection fraction of 10%. The RVSP is estimated to be 49 mmHg. There is no significant valvular disease. ASSESSMENT: 1. Acute cerebrovascular accident. 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 She has been started on asp irin. The most likely source is cardiac, with a markedly reduced ejection fraction. 2. Reduced ejection fraction. This could be due to ischemia or hypertension. A viral myocarditis i s possible but less likely. 3. Type 2 diabetes. The patient's blood sugars have been in the 200s. Her metformin is being held due to contrast loads. 4. Headache. The patient has a significant headache, which may be related to her hypertension. 5. Hypertension. The patient came in with severe hypertension which has improved slightly, but she still remains quite hypertensive. RECOMMENDATIONS: 1. Gradually reduce blood pressure over the next 48 hours, being careful not to drop the pressure to o quickly given the acute cerebrovascular accident. 2. SISI by Cardiology to evaluate for intracardiac thrombus. If she has intracardiac thrombus, she s hould have heparin, then transition to an oral agent. 3. Sliding scale insulin to control blood sugars. 4. Neurology consultation. /[id number]/MODL
[2018-04-07] MEDS: PROMETHAZINE HCL 25 MG/ML INJ IVP PRN (23:00)
[2018-04-08] MEDS: INSULIN LISPRO 100 UNIT/ML SC SCH ×6 (02:55→21:02)
[2018-04-08] MEDS ORDERED: NS 1,000 ML IV ONE (06:00)
[2018-04-08] MEDS ORDERED: DIAZEPAM 5 MG TAB PO ONE (06:00)
[2018-04-08] MEDS ORDERED: FAMOTIDINE 20 MG TAB PO ONE (06:00)
[2018-04-08] MEDS ORDERED: diphenhydrAMINE 25 MG CAP PO ONE (06:00)
[2018-04-08] MEDS ORDERED: MIDAZOLAM 2 MG/2 ML VIAL ONE (07:10)
[2018-04-08] MEDS ORDERED: fentaNYL 100 MCG/2 ML INJ ONE (07:10)
[2018-04-08] MEDS ORDERED: IOPAMIDOL (ISOVUE-370) 150 ML BTL IV ONE (07:10)
[2018-04-08] MEDS ORDERED: LIDOCAINE 1% 300 MG/30 ML SDV ONE (07:10)
--- NOTE | 2018-04-08 07:25 | PDPROPOC ---
Sedation Plan of Care Sedation Plan of Care: mental status noted, patient educated of risks, benefits , alternatives, patient can tolerate sedation ASA Classification: ASA 2 Planned drugs: fentanyl, midazolam Mallampati Score: Class 2 Mallampati Reference Image: Patient passed 3-3-2 rule?: Yes
--- NOTE | 2018-04-08 07:25 | PDHPUP ---
History & Physical Update H&P update statement: This history and physical update is based on an assessment of the patient which was completed after admission or registration (within 24 hours), but prior to the surgery/procedure. H&P update: H&P reviewed & patient examined, no change in patient's condition since H&P completed
--- NOTE | 2018-04-08 07:27 | PDCARPN ---
Cardiology Progress Note Chief Complaint: CVA/SOB Assessment/Plan: Assessment: CVA reduced EF HTN Plan: 04/08/18 07:25 plan for LHC this AM NPO risks/possible complications discussed and patient is willing to proceed continue BP control Subjective: stable Reviewed/Discussed With: multidisciplinary team Time Spent with Patient: greater than 25 minutes Time Spent with Patient: Greater than 25 minutes spent on this patients care, greater than 50% of time spent counseling, educating, and coordinating care regarding the above mentioned plan. Objective: Vital Signs (8 Hrs) Temp Pulse Resp BP Pulse Ox 04/08/18 06:00 36.6 C 77 15 125/98 H 100 04/08/18 04:00 87 17 143/103 H 100 04/08/18 02:00 88 17 149/107 H 100 04/08/18 00:00 80 16 135/110 H 100 Intake/Output (24 Hrs) 04/07/18 04/08/18 04/09/18 05:59 05:59 05:59 Intake Total 2113 1250 Balance 2113 1250 Intake: Oral (ml) 1300 1250 IV Intake (ml) 320 IV Infused (ml) 493 Ns 1,000 ml @ 75 mls/hr 493 IV CONT ROBERTO Rx#: [id number] Other: Weight 101.1 kg 101.7 kg Number of Voids Toilet 2 1 Number of Emesis 4 Occurrences Result Diagrams: 04/08/18 05:00 04/08/18 05:00 - Physical Exam Constitutional: no apparent distress Eyes: PERRL Ears, Nose, Mouth, Throat: moist mucous membranes Cardiovascular: regular rate and rhythm Peripheral Pulses: 1+: femoral (R), femoral (L) Respiratory: clear to auscultate bilat Gastrointestinal: normoactive bowel sounds Genitourinary: no suprapubic tenderness Skin: no rashes Musculoskeletal: no muscular tenderness Neurologic: AAOx3 ICD10 Worksheet Patient Problems: Problems Problem Status Onset CVA (cerebral vascular accident) Acute
[2018-04-08] MEDS: LISINOPRIL 5 MG TAB PO SCH (09:25)
[2018-04-08] MEDS: ASPIRIN 325 MG TAB PO SCH (09:25)
[2018-04-08] MEDS: CARVEDILOL 6.25 MG TAB PO SCH (09:25)
--- NOTE | 2018-04-08 10:10 | CPIP ---
DATE OF PROCEDURE: 04/08/2018 DATE OF PROCEDURE: 04/08/2018 INDICATIONS FOR PROCEDURE: Heart failure, reduced ejection fraction. PROCEDURE: 1. Nonselective right groin sheathogram. 2. 7-Australian sheath right femoral vein. 3. [place]-Geovanni catheterization. 4. Bilateral selective coronary angiography. 5. Left heart catheterization. 6. Left angiogram. BRIEF HISTORY: This is a 38-year-old female who was admitted with a CVA, who was found to have an EF of 10% with severe global LV dysfunction. Given these findings, patient consented for right and lef t heart catheterization to determine the etiology of her myopathy. DESCRIPTION OF PROCEDURE: After informed consent was obtained, where the right groin was prepped and draped in sterile fashion. Lidocaine 6-Australian sheath right common femoral art lefty, verified angiographically. A 6-Australian sheath placed into the right common femoral vein. [place]-G anz catheter was then advanced. A wedge pressure was mean of 37, A-wave 39, V-wave of 40. PA pressu re systolic 70, diastolic 38, mean of 50. RV pressure was systolic 70, diastolic 21, end of 34. RA pressure mean of 29, A-wave 40, V-wave 31. Cardiac output was measured to be 3.0 with a Jett index o f 1.5. AO sat was 86%. PO sat was 86%. PA sat was 40%. At this time the [place]-Geovanni catheter was re moved. The JL4 catheter was advanced to the left coronary artery. Images of the left coronary arter y revealed large normal left coronary system. This was a left dominant circulation. and LPDA were apparently with normal. Marginal 1 was normal. LAD was widely patent. There was a diagona l artery coming off the proximal portion which was healthy and free of disease. Right coronary arter y: After JL4 catheter was removed. The JR4 catheter was advanced to the right coronary a rtery. Image right coronary artery revealed nondominant right coronary artery. After this was done, a pigtail catheter was advanced to the left ventricle. EDP was 35 mmHg. Left ventriculogram shot i n the RM projection showed EF of approximately 10% to 15% with severe global LV dysfunction. There was no pull-back gradient between the LV and aorta. Pigtail catheter was removed over the 0.035 wire . Right groin was closed with a 6-Australian Angio-Seal, 7-Australian sheath was closed with manual pressure . Patient tolerated the procedure well with no complications. IMPRESSION: 1. Normal coronary arteries. 2. Severe pulmonary hypertension. 3. Reduced cardiac output. 4. Severely reduced ejection fraction. PLAN: The patient has a nonischemic cardiomyopathy, most likely secondary to uncontrolled hypertensi on. Will continue with carvedilol as well as adding an DESTINEE inhibitor and DESTINEE inhibitor. The patient does not have any evidence of shortness of fluid overload at this point, however, Lasix c an be utilized if there is any evidence of fluid retention. Salt restriction and tight blood pressur e control are essential. /[id number]/MODL
[2018-04-08] MEDS: hydrALAZINE 20 MG/ML VIAL IVP PRN (11:06)
[2018-04-08] MEDS: ONDANSETRON DISINTEGRATING 4 MG TAB PO PRN ×3 (12:06→20:28)
[2018-04-08] MEDS: HYDROCODONE/APAP 5/325 TAB PO PRN ×2 (12:06→20:12)
--- NOTE | 2018-04-08 12:50 | NEUROPROG ---
Assessment: [id number] - Neurology Consult: - CC: F/U for stroke - Narrative Summary: Pt with PMHx of DM2, obesity, HTN, migraines, idiopathic cardiomyopathy noted on 04/05/18 worsening headaches and problems with vision on her left side. She was not on any medications. She presented to [facility] in [place], [place]. A head CT and head/neck CTA were reported to be unremarkable but brain MRI was reported so show a R MOTOR RUNNER stroke per [facility] admission H&P. No TPA was given. Pt requested transfer to [facility] which was done. Pt was also noted to have a pericardial effusion. I initially saw the patient on 04/06/18. Neurologic exam showed left sided vision. - F/U 04/07/18. TTE showed EF 10%. Cardiology consulted and recommended SISI and cardiac cath to further evaluate as unclear cause of low EF. At this times it seems reduced EF is likely cause of stroke so will consider warfarin at hospital discharge for stroke prevention (per UpToDate guidelines). Will get repeat brain MRI to assess stroke cause to estimate bleeding risk if warfarin is needed. - HPI: F/U 04/08/18. Brain MRI showed the right MOTOR RUNNER stroke. Pt just had cardiac cath so is resting. No new complaints. It was reported the cardiac cath did not show any significant problems but full report pending. Pt will likely need warfarin at discharge for stroke prevention but will wait two weeks after stroke to begin given size of stroke and possible mild petechial hemorrhage noted on brain MRI (not clinically concerning for significant bleed). - PMHx: DM2, morbid obesity, HTN, migraines, idiopathic cardiomyopathy PSHx: BTL - SHx: former tobacco use FHx: HTN, DM2 - ROS: Pt denied acute fever, total vision loss, active severe chest pain, respiratory failure, total body severe rash, total bowel/bladder incontinence, psychosis, active seizures, or active bleeding - Labs: 04/06/18- LDL 54L, H1AC 7.8 - Rads: 04/05/18- Head CT: reported not to show any acute bleed 04/05/18- Head/Neck CTA: reported not to show any significant findings 04/05/18- Brain MRI wo: reported to show right MOTOR RUNNER stroke 04/06/18- TTE: EF 10%, severely reduced LV function 04/07/18- Brain MRI wo: A 4.5- x 3.0-cm focus of acute ischemia within the right occipital lobe, associated with significant gyral susceptibility artifact potentially related to gyral cortical petechial hemorrhage. As clinically appropriate, this finding could be further evaluated with noncontrast CT examination. No additional foci of acute ischemia identified. No evidence of mass or mass effect. - Assessment: 1. Right MOTOR RUNNER Stroke on 04/05/18 causing left sided vision changes: CTA head/neck on 04/05/18 showed no cause. Brain MRI on 04/05/18 showed right MOTOR RUNNER distribution stroke. LDL 54L, pt not on aspirin prior to stroke. EF reduced to 10% on SISI is concerning for cause of stroke. Cardiac cath reported to not show any major problems. Will begin warfarin with INR goal of 2-3 on 04/19/17 - 2. Reduced EF on TTE on 04/06/18: cardiology consulting - 3. HTN 4. DM2 5. Morbid Obesity 6. Migraines - Plan: - Continue aspirin 325 mg qd for stroke prevention at this time, however change to warfarin at on 04/19/18 (two weeks after stroke given size), per UpToDate guidelines - Blood pressure < 140/90 - LDL < 70 (54) - H1AC < 7.0 (7.8) - PT/OT/Speech to determine rehab needs - F/U in neurology clinic 1-6 weeks after hospital discharge - 35 min spent with patient and her family, discussing stroke prevention guidelines Objective: Vital Signs Temp Pulse Resp BP Pulse Ox 36.6 C 91 23 H 130/87 H 93 04/08/18 06:00 04/08/18 12:00 04/08/18 12:00 04/08/18 12:00 04/08/18 12:00 Laboratory Results 04/08/18 05:00 04/08/18 05:00 04/07/18 04/08/18 04/09/18 05:59 05:59 05:59 Intake Total 2113 1250 100 Balance 2113 1250 100 PT 15.8 SEC (12.0-15.0) H 04/07/18 12:00 INR 1.24 (0.83-1.16) H 04/07/18 12:00 Allergies/Adverse Reactions: No Known Allergies Allergy (Verified 04/06/18:50)
--- NOTE | 2018-04-08 15:38 | ASMTCMCOM ---
CM Note CM Note Notes: PT/OT ordered for the patient. Therapies have not been able to work with the patient yet. CM will follow. Date Signed: 04/08/2018 03:38 PM Electronically Signed By:Mary Del Castillo LCSW
--- NOTE | 2018-04-08 16:22 | HOSPPROG ---
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 # Acute CVA- MRI from OSH showed acute CVA of right RAILROAD FIRER/FIREMAN. patient with and left sided visual field deficits as main deficit. Neurology consulted, goal sbp of 130-140 now with lisinopril/coreg and prn hydralazine is at goal. Continue full dose asa. Etiology concerning for embolic CVA given TTE results and plan for AC prior to dc. 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 # acute systolic heart failure: with EF of less than 10%, given cath without flow limiting coronary disease etiology related to either poorly controlled htn or possibly viral # severe pulm htn: presumably due to left heart failure though also has had suspected and untreated anshu and likely ohs contributing # DM2: on SSI for now, A1c of 7.8, will resume oral agents at dc # morbid obesity: BMI of 41, recommend lifestyle modification PPX- SCDS, Asa, lovenox Cor- Full Dispo- inpatient for acute CVA, CHF Subjective: patient notes being quite somnolent post cardiac cath but otherwise denies complaints, not sob/no chest pain, no new issues Objective: Vital Signs Temp Pulse Resp BP Pulse Ox 36.6 C 87 22 H 144/96 H 98 04/08/18 06:00 04/08/18 16:00 04/08/18 16:00 04/08/18 16:00 04/08/18 16:00 Laboratory Results 04/08/18 05:00 04/08/18 05:00 04/07/18 04/08/18 04/09/18 05:59 05:59 05:59 Intake Total 2113 1250 100 Balance 2113 1250 100 PT 15.8 SEC (12.0-15.0) H 04/07/18 12:00 INR 1.24 (0.83-1.16) H 04/07/18 12:00 awake alert anicteric op clear rrr no mrg cta b to ant exam soft nt nd trace ble edema warm dry well perfused oriented somnolent - Time Spent With Patient Time Spent with Patient: greater than 35 minutes Time Spent with Patient: Greater than 35 minutes spent on this patients care, greater than 50% of time spent counseling, educating, and coordinating care regarding the above mentioned plan. ICD10 Worksheet Patient Problems: Problems Problem Status Onset CVA (cerebral vascular accident) Acute
[2018-04-08] MEDS: CARVEDILOL 25 MG TAB PO SCH (17:54)
--- NOTE | 2018-04-08 18:26 | PDINTPN ---
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 Clinically stable Cardiomyopathy: EF 10-15%, cause unknown, ? hypertensive, idiopathic (viral). SISI did not show any clot. HTN: Chronic. Acutely severe in setting of CVA. BP goal lower today at approx SBP 130-140 DM: BSs 165-317 BRII: Suspected as an outpatient, has not completed recommended evaluation. Could contribute to HTN, sub-optimal DM control, increased CV risk, cardiomyopathy. Pulmonary hypertension. Severe. Concurrently had a markedly elevated pulmonary wedge pressure, suggesting that her pulmonary hypertension at this point is in large part due to left-sided heart failure Plan: BP control with goal SBP 130-140, use hydralazine PRN and continue carvedilol, lisinopril Increase SSI. Hold OHA. PO narcotics PRN TAYLOR ASA for now, likely start Coumadin prior to discharge. Outpatient evaluation for BRII. The meantime maintain normal oxygen saturations day and night. 04/08/18 18:24 Subjective: Neurological feels about the same, with persistent visual field deficit. Feels a bit tired, which she attributes to the procedures today Objective: Vital Signs Temp Pulse Resp BP Pulse Ox 36.6 C 90 22 H 131/74 H 98 04/08/18 06:00 04/08/18 17:54 04/08/18 16:00 04/08/18 17:54 04/08/18 16:00 Laboratory Results 04/08/18 05:00 04/08/18 05:00 04/07/18 04/08/18 04/09/18 05:59 05:59 05:59 Intake Total 2113 1250 450 Balance 2113 1250 450 PT 15.8 SEC (12.0-15.0) H 04/07/18 12:00 INR 1.24 (0.83-1.16) H 04/07/18 12:00 Heart catheterization: Normal coronary arteries. Ejection fraction estimated at 10-15%. Pulmonary artery pressure 70/38/50. Wedge pressure 37 Physical Exam - Physical Exam General Appearance: alert, no apparent distress EENT: pharynx normal Neck: normal inspection Respiratory: lungs clear, normal breath sounds Cardiac/Chest: regular rate, rhythm, No edema Abdomen: normal bowel sounds, non-tender Skin: normal color, warm/dry Extremities: normal inspection Neuro/Psych: alert, normal mood/affect, other (Persistent visual field deficit on the left), No motor weakness ICD10 Worksheet Patient Problems: Problems Problem Status Onset CVA (cerebral vascular accident) Acute
[2018-04-08] MEDS: ONDANSETRON 4 MG/2 ML VIAL IVP PRN (20:28)
[2018-04-08] MEDS: PROMETHAZINE HCL 25 MG/ML INJ IVP PRN (20:56)
[2018-04-09] MEDS: CARVEDILOL 25 MG TAB PO SCH ×2 (08:10→17:21)
[2018-04-09] MEDS: ASPIRIN 325 MG TAB PO SCH (08:10)
[2018-04-09] MEDS: LISINOPRIL 5 MG TAB PO SCH (08:10)
[2018-04-09] MEDS: INSULIN LISPRO 100 UNIT/ML SC SCH ×4 (09:16→21:38)
--- NOTE | 2018-04-09 10:40 | NEUROPROG ---
Assessment: [id number] - Neurology Consult: - CC: F/U for stroke - Narrative Summary: Pt with PMHx of DM2, obesity, HTN, migraines, idiopathic cardiomyopathy noted on 04/05/18 worsening headaches and problems with vision on her left side. She was not on any medications. She presented to [facility] in [place], [place]. A head CT and head/neck CTA were reported to be unremarkable but brain MRI was reported so show a R SANITATION OFFICER stroke per [facility] admission H&P. No TPA was given. Pt requested transfer to [facility] which was done. Pt was also noted to have a pericardial effusion. I initially saw the patient on 04/06/18. Neurologic exam showed left sided vision. - F/U 04/07/18. TTE showed EF 10%. Cardiology consulted and recommended SISI and cardiac cath to further evaluate as unclear cause of low EF. At this times it seems reduced EF is likely cause of stroke so will consider warfarin at hospital discharge for stroke prevention (per UpToDate guidelines). Will get repeat brain MRI to assess stroke cause to estimate bleeding risk if warfarin is needed. - F/U 04/08/18. Brain MRI showed the right SANITATION OFFICER stroke. Pt just had cardiac cath so is resting. No new complaints. It was reported the cardiac cath did not show any significant problems but full report pending. Pt will likely need warfarin at discharge for stroke prevention but will wait two weeks after stroke to begin given size of stroke and possible mild petechial hemorrhage noted on brain MRI (not clinically concerning for significant bleed). - HPI: F/U 04/09/18. Cardiac cath report felt patient had non-ischemic cardiomyopathy likely from hypertension. No new complaints. I will recommend pt begin warfarin for anticoagulation (INR 2-3) on 04/19/17. Pt told to not go to work for 1 week to rest up and not drive until she sees me in the outpatient clinic. - PMHx: DM2, morbid obesity, HTN, migraines, idiopathic cardiomyopathy PSHx: BTL - SHx: former tobacco use FHx: HTN, DM2 - ROS: Pt denied acute fever, total vision loss, active severe chest pain, respiratory failure, total body severe rash, total bowel/bladder incontinence, psychosis, active seizures, or active bleeding - Labs: 04/06/18- LDL 54L, H1AC 7.8 - Rads: 04/05/18- Head CT: reported not to show any acute bleed 04/05/18- Head/Neck CTA: reported not to show any significant findings 04/05/18- Brain MRI wo: reported to show right SANITATION OFFICER stroke 04/06/18- TTE: EF 10%, severely reduced LV function 04/07/18- Brain MRI wo: A 4.5- x 3.0-cm focus of acute ischemia within the right occipital lobe, associated with significant gyral susceptibility artifact potentially related to gyral cortical petechial hemorrhage. As clinically appropriate, this finding could be further evaluated with noncontrast CT examination. No additional foci of acute ischemia identified. No evidence of mass or mass effect. 04/08/18- Cardiac cath: non-ischemic cardiomyopathy, likely from hypertension - Assessment: 1. Right SANITATION OFFICER Stroke on 04/05/18 from hypertensive cardiomyopathy causing left sided vision changes: CTA head/neck on 04/05/18 showed no cause of stroke. Brain MRI on 04/05/18 showed right SANITATION OFFICER distribution stroke. LDL 54L and H1AC 7.8, pt not on aspirin prior to stroke. EF reduced to 10% on SISI is concerning for cause of stroke and cardiac cath showed non-ischemic cardiomyopathy (likely from hypertension). Will recommend warfarin with INR goal of 2-3 on 04/19/17. - 2. Non-ischemic hypertensive cardiomyopathy on 04/06/18: cardiology consulting - 3. HTN 4. DM2 5. Morbid Obesity 6. Migraines - Plan: - Continue aspirin 325 mg qd for stroke prevention at this time, however change to warfarin at on 04/19/18 (two weeks after stroke given stroke size), per UpToDate guidelines - Stop aspirin when pt anticoagulated (INR 2-3) on warfarin - Blood pressure < 140/90 - LDL < 70 (54) - H1AC < 7.0 (7.8), pt needs to work closely with PCM to address this - PT/OT/Speech to determine rehab needs - F/U in neurology clinic 1-6 weeks after hospital discharge - Do not drive until f/u in neurology clinic, likely with need OT driving assessment to ensure safe driving - No further neurologic w/u needed, neurology will sign off - 35 min spent with patient and her family, discussing stroke prevention guidelines and need for anticoagulation Objective: Vital Signs Temp Pulse Resp BP Pulse Ox 36.5 C 94 18 124/98 H 91 L 04/09/18 08:00 04/09/18 08:00 04/09/18 08:00 04/09/18 08:00 04/09/18 08:00 Laboratory Results 04/08/18 05:00 04/08/18 05:00 04/08/18 04/09/18 04/10/18 05:59 05:59 05:59 Intake Total 1250 850 Balance 1250 850 PT 15.8 SEC (12.0-15.0) H 04/07/18 12:00 INR 1.24 (0.83-1.16) H 04/07/18 12:00 Allergies/Adverse Reactions: No Known Allergies Allergy (Verified 04/06/18 09:50)
--- NOTE | 2018-04-09 12:27 | PDINTPN ---
Respiratory Therapy Assistant Progress Note Assessment/Plan: Assessment: Acute CVA: Right BREAST BUFFER, primary deficit is left visual field cut. Clinically stable Cardiomyopathy: EF 10-15%, cause unknown, heart catheterization negative for coronary artery disease. ? hypertensive, idiopathic (viral). SISI did not show any clot. HTN: Chronic. Acutely severe in setting of CVA. BP goal lower today at approx SBP 130-140 DM: BSs remain in 200s on SSI low-dose regimen BRII: Suspected as an outpatient, has not completed recommended evaluation. Could contribute to HTN, sub-optimal DM control, increased CV risk, cardiomyopathy. Pulmonary hypertension. Severe. Concurrently had a markedly elevated pulmonary wedge pressure, suggesting that her pulmonary hypertension at this point is in large part due to left-sided heart failure Plan: BP control with goal SBP 100-120, use hydralazine PRN and continue carvedilol, lisinopril Increase SSI to standard regimen. Continue to hold OHA for now. PO narcotics PRN TAYLOR ASA for now, likely start Coumadin prior to discharge. Outpatient evaluation for BRII. The meantime maintain normal oxygen saturations day and night. 04/09/18 12:27 04/09/18 12:29 Subjective: Feels better, does not have a headache for the 1st time since hospitalization. Denies dyspnea or chest pain. Visual symptoms stable Objective: Vital Signs Temp Pulse Resp BP Pulse Ox 36.5 C 94 18 124/98 H 82 L 04/09/18 08:00 04/09/18 08:00 04/09/18 08:00 04/09/18 08:00 04/09/18 11:30 Laboratory Results 04/08/18 05:00 04/08/18 05:00 04/08/18 04/09/18 04/10/18 05:59 05:59 05:59 Intake Total 1250 850 Balance 1250 850 PT 15.8 SEC (12.0-15.0) H 04/07/18 12:00 INR 1.24 (0.83-1.16) H 04/07/18 12:00 Physical Exam - Physical Exam General Appearance: alert, no apparent distress EENT: normal ENT inspection Neck: normal inspection Respiratory: lungs clear, normal breath sounds Cardiac/Chest: regular rate, rhythm, No edema Abdomen: normal bowel sounds, non-tender Skin: normal color, warm/dry Extremities: non-tender, normal inspection Neuro/Psych: alert, normal mood/affect, oriented x 3 ICD10 Worksheet Patient Problems: Problems Problem Status Onset CVA (cerebral vascular accident) Acute
--- NOTE | 2018-04-09 16:13 | HOSPPROG ---
Hospitalist Progress Note Assessment/Plan: 38 year old female with pmh of NIDDM, morbid obesity, HTN admitted with an acute WARRANT SERVER stroke and found to have LVEF of 10%. # Acute CVA- MRI from OSH showed acute CVA of right WARRANT SERVER. patient with and left sided visual field deficits as main deficit. Neurology consulted--no further IP recs, they will follow as OP, goal sbp of 130-140 now with lisinopril/coreg and prn hydralazine is at goal. Continue full dose asa. Etiology concerning for embolic CVA given TTE results and plan for AC prior to dc. 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 Martel after discharge # acute hypoxic respiratory failure: with desats to the 80s on RA, but o2 in the low to mid 90s on 0.5L, will get repeat cxr in am, presumably due to poor cardiac perfusion with contribtion of anshu/ohs # severe pulm htn: presumably due to left heart failure though also has had suspected and untreated anshu and likely ohs contributing # DM2: on SSI for now, A1c of 7.8, will resume oral agents at dc # morbid obesity: BMI of 41, recommend lifestyle modification PPX- SCDS, Asa, lovenox Cor- Full Dispo- inpatient for acute CVA, CHF Subjective: no significant overnight events, patient notes that she remains somnolent but lesss so than yesterday, denies chest pain or palpitations, no new neuro sxs, visual deficit unchanged Objective: Vital Signs Temp Pulse Resp BP Pulse Ox 36.3 C 92 16 96/63 L 96 04/09/18 15:07 04/09/18 15:07 04/09/18 15:07 04/09/18 15:07 04/09/18 15:07 Laboratory Results 04/08/18 05:00 04/08/18 05:00 04/08/18 04/09/18 04/10/18 05:59 05:59 05:59 Intake Total 1250 850 Balance 1250 850 PT 15.8 SEC (12.0-15.0) H 04/07/18 12:00 INR 1.24 (0.83-1.16) H 04/07/18 12:00 awake alert anicteric op clear rrr no mrg cta b to ant exam soft nt nd trace ble edema warm dry well perfused oriented somnolent - Time Spent With Patient Time Spent with Patient: greater than 35 minutes Time Spent with Patient: Greater than 35 minutes spent on this patients care, greater than 50% of time spent counseling, educating, and coordinating care regarding the above mentioned plan. ICD10 Worksheet Patient Problems: Problems Problem Status Onset CVA (cerebral vascular accident) Acute
[2018-04-09] MEDS ORDERED: LACTULOSE 20 GM/30 ML UDCUP PO PRN (16:50)
[2018-04-09] MEDS ORDERED: MAGNESIUM HYDROXIDE 30 ML UDCUP PO PRN (16:50)
[2018-04-09] MEDS ORDERED: BISACODYL 10 MG SUPP PR PRN (16:50)
[2018-04-09] MEDS ORDERED: POLYETHYLENE GLYCOL 3350 17 GM PKT PO PRN (16:50)
--- NOTE | 2018-04-09 18:10 | ASMTCMCOM ---
CM Note CM Note Notes: Reviewed chart. Pt transferred to PCU today. PT recommended home independent during first evaluation. Pt has refused subsequent PT evals secondary to nausea and headaches. OT recommendations unclear. Pt refused OT today. Spoke with Dr. Thomas. Pt will likely discharge home independently with family support when medically stable. CM will continue to follow for any potential needs. Discharge Plan: Likely independent with family support Date Signed: 04/09/2018 06:10 PM Electronically Signed By:Alma Wakefield RN
[2018-04-09] MEDS: SENNOSIDES/DOCUSATE SODIUM TAB PO SCH ×2 (21:39→22:19)
[2018-04-10 07:44] VITALS: BP 133/101
[2018-04-10] MEDS: LISINOPRIL 5 MG TAB PO SCH (07:53)
[2018-04-10] MEDS: CARVEDILOL 25 MG TAB PO SCH (07:53)
[2018-04-10] MEDS: SENNOSIDES/DOCUSATE SODIUM TAB PO SCH (07:54)
[2018-04-10] MEDS: ASPIRIN 325 MG TAB PO SCH (07:54)
[2018-04-10] MEDS: INSULIN LISPRO 100 UNIT/ML SC SCH (07:55)
== END 2018-04-10 12:08 | disposition home or self-care (01) | DRG 45 ==
LOC: F3N 04-06 01:31 → OBSVTOIN 04-06 01:31 → F3N 04-06 01:34 → F2N 04-06 13:57 → F2W 04-09 14:15
PROVIDERS: ADMIT Internal Medicine; ATTEND Internal Medicine
PROC: B246ZZ4 Ultrasonography of Right and Left Heart, Transesophageal (ICD-10-PCS; 2018-04-07)
PROC: 4A023N8 Measurement of Cardiac Sampling and Pressure, Bilateral, Percutaneous Approach (ICD-10-PCS; principal; 2018-04-08)
PROC: B2111ZZ Fluoroscopy of Multiple Coronary Arteries using Low Osmolar Contrast (ICD-10-PCS; principal; 2018-04-08)
PROC: B2151ZZ Fluoroscopy of Left Heart using Low Osmolar Contrast (ICD-10-PCS; principal; 2018-04-08)
DX: I63.531 Cerebral infarction due to unspecified occlusion or stenosis of right posterior cerebral artery (principal); R41.842 Visuospatial deficit; I11.0 Hypertensive heart disease with heart failure; I50.22 Chronic systolic (congestive) heart failure; I27.22 Pulmonary hypertension due to left heart disease; I36.1 Nonrheumatic tricuspid (valve) insufficiency; E11.65 Type 2 diabetes mellitus with hyperglycemia; Z79.84 Long term (current) use of oral hypoglycemic drugs; E66.01 Morbid (severe) obesity due to excess calories; Z68.41 Body mass index [BMI] 40.0-44.9, adult; G47.33 Obstructive sleep apnea (adult) (pediatric); G43.909 Migraine, unspecified, not intractable, without status migrainosus; Z87.891 Personal history of nicotine dependence; Z23 Encounter for immunization
CPT/HCPCS: 92523-GN; 97161-GP; 97165-GO; 97530-GP; C1760; C8924; G0008; G0009; J0360; J1644; J1815; J2060; J2250; J2270; J2405; J2550; J2704; J3010; Q9957; Q9967

== ENCOUNTER 2018-04-13 22:23 | Emergency (ER) | payer MEDICAID ==
--- NOTE | 2018-04-13 23:13 | EDPHY ---
H & P Stated Complaint: s/p angiogram on 04/08 in R groin c/o increased swelling to right thigh - Personal History LMP (Females 10-55): 22-28 Days Ago Current Tetanus Diphtheria and Acellular Pertussis (TDAP): Unsure - Medical/Surgical History Hx Asthma: Yes Hx Diabetes: Yes Hx Cardiac Disease: No Hx Renal Disease: No Hx Cirrhosis: No Hx Alcoholism: No Hx HIV/AIDS: No Hx Splenectomy or Spleen Trauma: No Other PMH: Ischemic stroke, DM 2, asthma - Social History Smoking Status: Former smoker Time Seen by Provider: 04/13/18 22:56 HPI/ROS: CHIEF COMPLAINT: Right Inguinal pain, ecchymotic discoloration HISTORY OF PRESENT ILLNESS: 38-year-old female postop day 5 post cardiac catheterization access via right inguinal for history of idiopathic myopathy. Study was subsequently evaluated as normal coronary arteries. Today she noticed ecchymotic discoloration in the right inguinal region became concerned. She is otherwise feeling well. Denies: Abdominal pain, chest pain, dyspnea, headache, nausea, vomiting , fever, chills. PRIMARY CARE PROVIDER: REVIEW OF SYSTEMS: 10 systems reviewed and negative with the exception of the elements mentioned in the history of present illness PAST MEDICAL & SURGICAL HISTORY: migraine. Idiopathic cardiomyopathy. Non- insulin-dependent diabetes. Obesity. SOCIAL HISTORY: PHYSICAL EXAM (Prior to examination, patient consented to physical exam, hands were washed and my usual and customary physical exam procedures followed) 1) GENERAL: Well-developed, well-nourished, alert and oriented. Appears to be in no acute distress. 2) HEAD: Normocephalic, atraumatic 3) HEENT: Pupils equal, round, reactive to light bilaterally. Sclera anicteric. 4) NECK: Full range of motion, no meningeal signs. 5) LUNGS: Clear auscultation bilaterally, no wheezes, no rhonchi, no retractions. 6) HEART: Regular rate and rhythm, no murmur, no heave, no gallop. 7) ABDOMEN: No guarding, no rebound, no focal tenderness, negative McBurney's, negative Villalta's, negative Rovsing's, negative peritoneal sign, 8) MUSCULOSKELETAL: Right lower extremity: Ecchymosis to the right inguinal region noted with associated tenderness. No pulsatile mass. No bleeding. DP PT pulses present and brisk distally. Soft compartments throughout. 9) BACK: No CVA tenderness, no midline vertebral tenderness, no fluctuance, no step-off, no obvious trauma, no visual or palpable abnormality. 10) SKIN: No rash, no petechiae. 11) Psychiatric: Patient is oriented X 3, there is no agitation. DIFFERENTIAL DIAGNOSIS: In no particular order include but limited to postsurgical pain, postsurgical ecchymosis, pseudoaneurysm (Talisha,Musa Colleen) Constitutional: Initial Vital Signs Temperature (C) 36.7 C 04/13/18 22:30 Heart Rate 96 04/13/18 22:30 Respiratory Rate 16 04/13/18 22:30 Blood Pressure 169/100 H 04/13/18 22:30 O2 Sat (%) 96 04/13/18 22:30 O2 Delivery Mode Room Air Allergies/Adverse Reactions: No Known Allergies Allergy (Verified 04/06/18 09:50) Home Medications: Medication Instructions Recorded Albuterol Hfa Anes Only [Proair 2 puffs IH QID PRN 04/06/18 Hfa Icu (*)] Exenatide Microspheres [Bydureon 2 mg SQ WE@21 04/06/18 Pen] Norethindrone [Norlyda] 0.35 mg PO HS 04/06/18 glipiZIDE [Glipizide] 5 mg PO BID 04/06/18 metFORMIN HCL [Metformin HCl] 1,000 mg PO BID 04/06/18 ALPRAZolam [Xanax 0.5 MG (*)] 0.5 mg PO TID PRN #30 tab 04/10/18 Aspirin [Aspirin 325 mg (*)] 325 mg PO DAILY #30 tab 04/10/18 Atorvastatin Calcium 40 mg PO DAILY #30 tablet 04/10/18 Carvedilol [Coreg (*)] 25 mg PO BIDMEAL #60 tab 04/10/18 Lisinopril [Zestril 5 mg (*)] 5 mg PO DAILY #30 tab 04/10/18 Medical Decision Making Other Provider: ED PA DICTATION I evaluated and participated in the management of the patient. I also evaluated the patient independently. My co-signature indicates that I have reviewed this chart and I agree with the findings and plan of care as documented. My personal H&P findings include: 38-year-old female status post cardiac catheterization performed about 5 days ago, currently on aspirin 325 mg , presents with right groin pain at site of catheterization. Exam demonstrates ecchymoses in the region with some tenderness. Pulses are normal and there is no leg edema. Ultrasound is performed which shows partial thrombus in the saphenous vein which does not reach the common femoral. It is unclear if this is the cause of her pain. Because this is not in the deep system, she does not require anticoagulation, rather needs close follow-up. She has an appointment in 2 days with Cardiology. I have asked that she request from them or her primary care doctor a repeat DVT ultrasound within 1 week. She is able to follow up with this. She will be discharged from the emergency department. (Isabella Roman) Departure - Departure Disposition: Home, Routine, Self-Care Clinical Impression: Status post cardiac catheterization Saphenous vein thrombophlebitis Qualifiers: Laterality: right Qualified Code(s): I80.01 - Phlebitis and thrombophlebitis of superficial vessels of right lower extremity Condition: Good Instructions: Superficial Thrombophlebitis (ED) Additional Instructions: Your ultrasound today shows that you have a small blood clot in a vein in your thigh. This is not considered a DVT. This requires repeat ultrasound in 1 week. 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 You should return to the ER or seek care if you have any increasing leg pain or swelling, shortness of breath or chest pain. Referrals: TRISTAN HERNÁNDEZ [Primary Care Provider] - 1-2 days without fail Kenny Martel MD [Medical Doctor] - As per Instructions Ramses Morgan DO [Medical Doctor] - As per Instructions
[2018-04-14 00:56] VITALS: BP 159/92
== END 2018-04-14 00:56 | disposition home or self-care (01) ==
DX: I80.01 Phlebitis and thrombophlebitis of superficial vessels of right lower extremity (principal)

== ENCOUNTER → 2018-04-25 | Outpatient (CLI) | payer MEDICAID | LOC: FIMAGING 13:54 | PROVIDERS: ATTEND Family Medicine | DX: M79.661 Pain in right lower leg (principal); M79.89 Other specified soft tissue disorders; Z86.718 Personal history of other venous thrombosis and embolism ==